=== PATIENT | female | born 1955 | race Caucasian/White ===

== ENCOUNTER → 2016-12-24 | Outpatient (CLI) | payer OTHER ==
--- NOTE | ~2016-12-24 | MY29 ---
[facility] A Service of [facility] RADIOLOGY TEXT RESULTS PATIENT: PARVIN YEAGER LOCATION: [facility] : 55 UNIT #: [id number] AGE: [address]: JEAN YEAGER DO SEX: F ORDER DR: [id number] [facility]. [place], [place] [address] [id number] O MR#: [id number] Acc #: [id number] NAME: PARVIN YEAGER : 1955 SEX: F STUDY DATE/TIME: 12/24/2016 16:07 UNIT: [facility] ROOM: STUDY DESCRIPTION: MY OFELIA SCREENING W/ CAD BILAT Attending Physician: Jean Yeager D.O. Referring Physician: Jean Yeager D.O. Ordering Physician: Jean Yeager D.O. Primary Care Physician: Jean Yeager D.O. MEDICAL IMAGING REPORT This report is preliminary unless electronic signature is present EXAM Bilateral digital screening mammogram with CAD, 12/16/2016. CLINICAL HISTORY 61-year-old asymptomatic female with no personal history of breast cancer. The patient has a positive family history of breast cancer. FINDINGS The background breast parenchyma is predominately fatty replaced. No suspicious mass, microcalcification, architectural distortion. No significant change from 03/14/2015. IMPRESSION Negative mammogram. Recommendation: Annual screening mammogram. Patient's over the age of 40 are entered into a reminder system with target due date for the next mammogram. A result letter will be sent to the patient. BIRADS: 1 Negative Dictated by... Jatinder Benton M.D. THIS IS AN ELECTRONICALLY VERIFIED REPORT Jatinder Benton M.D. at 12/25/2016 8:15 AM C/to TD: 12/24/2016 18:24 JOB #: [id number] MEDICAL IMAGING REPORT [facility] A Service of [facility] RADIOLOGY TEXT RESULTS PATIENT: PARVIN YEAGER LOCATION: [facility] : 55 UNIT #: [id number] AGE: [address]: JEAN YEAGER DO SEX: F ORDER DR: Page 1 of 1 COPY
== END | disposition home or self-care (01) ==
LOC: CWCC 15:51
DX: Z12.31 Encounter for screening mammogram for malignant neoplasm of breast (principal); Z80.3 Family history of malignant neoplasm of breast
CPT/HCPCS: G0202